=== PATIENT | female | born 1970 | race Caucasian/White ===

== ENCOUNTER 2020-06-22 06:58 | Emergency (ER) | payer SELFPAY ==
[~2020-06-22] VITALS: Ht 154.9 cm; Wt 77.1 kg
[2020-06-22 07:19] VITALS: BP 192/101
--- NOTE | 2020-06-22 07:22 | NUR ---
50/F BIB [employer] [facility] [employer] C/O COUGH, HEADACHE X 2 DAYS. P 121, RR 22,BP 192/101 AT THIS TIME.MED HX:HTN. DENIES N/V. PT DENIES ANY FEVER, CP, SOB AT THIS TIME; PATIENT STATES PAIN OF 5/10 AT THIS TIME
--- NOTE | 2020-06-22 07:28 | NUR ---
BP 185/83, P 112 AT THIS TIME.
[2020-06-22] MEDS ORDERED: IBUPROFEN 600 MG TAB PO ONE (07:55)
--- NOTE | 2020-06-22 07:56 | NUR ---
PATIENT AMBULATED TO BED 3. REPORTED TO SANG MUÑOZ.
--- NOTE | 2020-06-22 08:15 | NUR ---
PT AOX4, BREATHING EVEN AND UNLABORED. PT DENIES HEADACHE, CHEST PAIN, N/V. PT COMPLAINS OF SOME NECK PAIN.
--- NOTE | 2020-06-22 08:15 | NUR ---
Rahul randle in ED - 06/22/20 at 0831 by MEDJJ PT BP 165/85, HR 109. RENNYD MADE AWARE
[2020-06-22] MEDS ORDERED: hydrALAZINE 20 MG/ML VIAL IVP ONE (08:25)
--- NOTE | 2020-06-22 08:30 | NUR ---
PT BP 165/85, HR 109. ERMD MADE AWARE
--- NOTE | 2020-06-22 08:31 | NUR ---
PER ERMD TO HOLD HYDRALAZINE ORDERED AT THIS TIME
--- NOTE | 2020-06-22 08:45 | NUR ---
XRAY AT BEDSIDE
[2020-06-22 08:46] LABS: BASOPHILS % (AUTO) 0.4 % (0.0-2.0); EOSINOPHILS % (AUTO) 0.3 % (0.0-4.0); HEMATOCRIT 31.5 % (36-48); HEMOGLOBIN 10.1 g/dL (12.0-16.0); LYMPHOCYTES # (AUTO) 2.2 K/uL (2.5-16.5); LYMPHOCYTES % (AUTO) 30.5 % (20.5-51.1); MEAN CORPUSCULAR HEMOGLOBIN 25 pg (27-31); MEAN CORPUSCULAR HGB CONC 32 g/dL (33-37); MONOCYTES # (AUTO) 0.4 K/uL (0.8-1.0); MONOCYTES % (AUTO) 5.4 % (1.7-9.3); NEUTROPHILS # (AUTO) 4.5 K/uL (1.8-7.7); NEUTROPHILS % (AUTO) 63.4 % (42.2-75.2); PLATELET COUNT (AUTO) 505 K/uL (140-450); RED CELL DISTRIBUTION WIDTH 16.7 % (11.6-13.7); WHITE BLOOD COUNT (AUTO) 7.2 K/uL (4.8-10.8)
--- NOTE | 2020-06-22 09:07 | NUR ---
PT ALERT AND AWAKE, BREATHING EVEN AND UNLABORED. STATES SHE IS OK
[2020-06-22 09:10] LABS: ALBUMIN 3.9 g/dL (3.4-5.0); ANION GAP 15.9 (8-16); CARBON DIOXIDE 21.5 mmol/L (21-32); CREATININE 0.8 mg/dL (0.6-1.3); POTASSIUM 3.4 mmol/L (3.5-5.1); TOTAL BILIRUBIN 0.3 mg/dL (0.0-1.0)
[2020-06-22 09:38] LABS: FREE T4 (FREE THYROXINE) 1.24 ng/dL (0.76-1.46); THYROID STIMULATING HORMONE 3.03 uIU/mL (0.34-3.74)
--- NOTE | 2020-06-22 10:20 | NUR ---
Patient discharged with v/s stable. Written and verbal after care instructions about cough (adult), covid 19, and general headache without cause given and explained in monegasque. Patient alert, oriented and verbalized understanding of instructions. Ambulatory with steady gait. All questions addressed prior to discharge. ID band removed. Patient advised to follow up with PMD. Rx of ibuprofen given. Patient educated on indication of medication including possible reaction and side effects. Opportunity to ask questions provided and answered.
[2020-06-22 10:25] VITALS: BP 142/70
== END 2020-06-22 10:20 | disposition home or self-care (01) ==
LOC: MED 06:58
DX: R05 Cough (principal); R51 Headache; I10 Essential (primary) hypertension
CPT/HCPCS: 36415; 71045; 80053; 84439; 84443; 84484; 85025; 85379; 93005; 99285; Q0092